=== PATIENT | female | born 1975 | race Caucasian/White ===

== ENCOUNTER 2016-07-19 15:50 | Emergency (ER) | payer MEDICARE, MEDICAID ==
[2014-04-04 06:27] VITALS: BMI 42.0
[~2016-07-19 15:50] MED LIST: BYSTOLIC5 MG PO; CELEXA10 MG PO; CYCLOBENZAPRINE10 MG PO; ESTRACE 0.5 MG0.5 MG PO; GLUCOPHAGE500 MG PO; HYDROCODON-ACE1 EAC6 PO; LISINOPRIL2.5 MG; ZESTORETIC 20/21 TAB PO
[2016-07-19 16:27] LABS: BASOPHILS 0.3 % (0.0-2.0); HEMATOCRIT 44.2 % (36.0-48.0); HEMOGLOBIN 15.1 g/dL (12-16); IMMATURE GRANULOCYTES 0.1 % (0-5); LYMPHOCYTES 35.6 % (15-50); MCH 30.7 pg (26.0-34.0); MCHC 34.2 g/dL (31.0-37.0); MCV 89.8 fL (80.0-100.0); MONOCYTES 4.8 % (2-11); NEUTROPHILS 58.2 % (40-80); PLATELET COUNT 255 10x3/uL (130-400); RBC 4.92 10x6/uL (4.00-5.40); RDW 12.1 % (11.5-14.5); WBC 9.1 10x3/uL (4.8-10.8)
[2016-07-19 16:41] LABS: ALBUMIN 4.2 g/dL (3.4-5.0); ALKALINE PHOSPHATASE 87 U/L (46-116); ALT (SGPT) 37 U/L (10-68); BILIRUBIN - TOTAL 0.37 mg/dL (0.2-1.3); CALC OSMOLALITY 283 mosm/kg (275-300); CALCIUM 9.3 mg/dL (8.5-10.1); CARBON DIOXIDE 24.4 mmol/L (21.0-32.0); CHLORIDE - SERUM 105 mmol/L (98-107); CREATININE - SERUM 0.7 mg/dL (0.6-1.3); POTASSIUM - SERUM 3.5 mmol/L (3.5-5.1); PROTEIN - SERUM 7.6 g/dL (6.4-8.2); SODIUM 142 mmol/L (136-145); UREA NITROGEN 13 mg/dL (7-18); eGFR NON AFRICAN AMERICAN > 90 mL/min (90-120)
[2016-07-19 16:43] LABS: GLUCOSE 118 mg/dL (74-106)
[2016-07-19 16:52] LABS: CREATINE KINASE 62 UL (21-215)
[2016-07-19 16:53] LABS: TROPONIN-I < 0.017 ng/mL (0.000-0.060)
== END 2016-07-19 18:00 | disposition home or self-care (01) ==
LOC: D.ER 15:50
PROVIDERS: Emergency Medicine
DX: K21.9 Gastro-esophageal reflux disease without esophagitis (principal); E11.9 Type 2 diabetes mellitus without complications; I10 Essential (primary) hypertension

== ENCOUNTER 2016-12-13 21:00 | Emergency (ER) | payer MEDICARE, MEDICAID ==
[2014-04-04 06:27] VITALS: BMI 42.0
[2016-12-13 21:44] LABS: BASOPHILS 0.5 % (0-2); EOSINOPHILS 5.9 % (0-7); HEMATOCRIT 43.2 % (36.0-48.0); HEMOGLOBIN 15.1 g/dL (12-16); IMMATURE GRANULOCYTES 0.1 % (0-5); LYMPHOCYTES 43.1 % (15-50); MCH 31.5 pg (26.0-34.0); MEAN PLATELET VOLUME 11.6 fL (7.4-10.4); MONOCYTES 6.5 % (2-11); NEUTROPHILS 43.9 % (40-80); PLATELET COUNT 246 10x3/uL (130-400); RDW 12.2 % (11.5-14.5); WBC 8.5 10x3/uL (4.8-10.8)
[2016-12-13 21:57] LABS: ALKALINE PHOSPHATASE 83 U/L (46-116); ALT (SGPT) 18 U/L (10-68); BILIRUBIN - TOTAL 0.22 mg/dL (0.2-1.3); CALCIUM 8.8 mg/dL (8.5-10.1); CARBON DIOXIDE 28.3 mmol/L (21.0-32.0); CHLORIDE - SERUM 100 mmol/L (98-107); CREATININE - SERUM 1.1 mg/dL (0.6-1.3); POTASSIUM - SERUM 3.4 mmol/L (3.5-5.1); PROTEIN - SERUM 7.3 g/dL (6.4-8.2); SODIUM 135 mmol/L (136-145); UREA NITROGEN 11 mg/dL (7-18); eGFR NON AFRICAN AMERICAN 58 mL/min (90-120)
[2016-12-13 22:08] LABS: CKMB 0.2 U/L (0.0-3.6); CREATINE KINASE 64 UL (21-215)
[2016-12-13 22:14] LABS: CALC OSMOLALITY 276 mosm/kg (275-300); GLUCOSE 242 mg/dL (74-106); TROPONIN-I < 0.017 ng/mL (0.000-0.060)
== END 2016-12-13 23:56 | disposition home or self-care (01) ==
LOC: D.ER 21:00
PROVIDERS: Emergency Medicine
DX: R07.89 Other chest pain (principal); D17.9 Benign lipomatous neoplasm, unspecified; L03.818 Cellulitis of other sites; E11.9 Type 2 diabetes mellitus without complications; K21.9 Gastro-esophageal reflux disease without esophagitis; I10 Essential (primary) hypertension

== ENCOUNTER 2017-01-29 09:29 | Emergency (ER) | payer MEDICARE, MEDICAID ==
[2014-04-04 06:27] VITALS: BMI 42.0
[2017-01-29 10:08] LABS: BASOPHILS 0.4 % (0-2); EOSINOPHILS 3.8 % (0-7); HEMATOCRIT 46.1 % (36.0-48.0); HEMOGLOBIN 16.2 g/dL (12-16); IMMATURE GRANULOCYTES 0.1 % (0-5); LYMPHOCYTES 32.9 % (15-50); MCH 31.6 pg (26.0-34.0); MCHC 35.1 g/dL (31.0-37.0); MCV 89.9 fL (80.0-100.0); MEAN PLATELET VOLUME 11.5 fL (7.4-10.4); MONOCYTES 6.4 % (2-11); NEUTROPHILS 56.4 % (40-80); PLATELET COUNT 221 10x3/uL (130-400); RBC 5.13 10x6/uL (4.00-5.40); RDW 12.1 % (11.5-14.5); WBC 6.9 10x3/uL (4.8-10.8)
[2017-01-29 10:36] LABS: BILIRUBIN - TOTAL 0.44 mg/dL (0.2-1.3); CALCIUM 9.6 mg/dL (8.5-10.1); CARBON DIOXIDE 23.1 mmol/L (21.0-32.0); CREATININE - SERUM 0.9 mg/dL (0.6-1.3); POTASSIUM - SERUM 4.1 mmol/L (3.5-5.1); PROTEIN - SERUM 7.7 g/dL (6.4-8.2)
== END 2017-01-29 11:17 | disposition home or self-care (01) ==
LOC: D.ER 09:29
PROVIDERS: Emergency Medicine
DX: L50.3 Dermatographic urticaria (principal); L01.00 Impetigo, unspecified; B35.3 Tinea pedis; B35.2 Tinea manuum; E11.9 Type 2 diabetes mellitus without complications; K21.9 Gastro-esophageal reflux disease without esophagitis; I10 Essential (primary) hypertension; F17.200 Nicotine dependence, unspecified, uncomplicated

== ENCOUNTER 2017-03-04 17:43 | Emergency (ER) | payer MEDICARE, MEDICAID ==
[2014-04-04 06:27] VITALS: BMI 42.0
== END 2017-03-04 18:50 | disposition home or self-care (01) ==
LOC: D.ER 17:43
DX: L01.00 Impetigo, unspecified (principal); E11.9 Type 2 diabetes mellitus without complications; K21.9 Gastro-esophageal reflux disease without esophagitis; I10 Essential (primary) hypertension

== ENCOUNTER 2017-04-28 22:25 | Emergency (ER) | payer MEDICARE, MEDICAID ==
[2014-04-04 06:27] VITALS: BMI 42.0
[2017-04-28 23:21] LABS: BASOPHILS 0.1 % (0-2); EOSINOPHILS 0.1 % (0-7); HEMOGLOBIN 17.3 g/dL (12-16); IMMATURE GRANULOCYTES 0.3 % (0-5); LYMPHOCYTES 13.8 % (15-50); MCH 31.7 pg (26.0-34.0); MCHC 35.3 g/dL (31.0-37.0); MCV 89.7 fL (80.0-100.0); MEAN PLATELET VOLUME 11.8 fL (7.4-10.4); NEUTROPHILS 79.7 % (40-80); PLATELET COUNT 251 10x3/uL (130-400); RBC 5.46 10x6/uL (4.00-5.40); RDW 12.5 % (11.5-14.5); WBC 9.6 10x3/uL (4.8-10.8)
[2017-04-28 23:39] LABS: KETONE - SERUM SMALL mg/dL (NEGATIVE)
[2017-04-28 23:46] LABS: ALBUMIN 3.5 g/dL (3.4-5.0); ALKALINE PHOSPHATASE 98 U/L (46-116); ALT (SGPT) 25 U/L (10-68); CALCIUM 9.6 mg/dL (8.5-10.1); CARBON DIOXIDE 23.3 mmol/L (21.0-32.0); CHLORIDE - SERUM 97 mmol/L (98-107); CKMB 0.2 U/L (0.0-3.6); CREATINE KINASE 35 UL (21-215); CREATININE - SERUM 1.3 mg/dL (0.6-1.3); POTASSIUM - SERUM 4.7 mmol/L (3.5-5.1); PROTEIN - SERUM 6.6 g/dL (6.4-8.2); SODIUM 132 mmol/L (136-145); TROPONIN-I < 0.017 ng/mL (0.000-0.060); UREA NITROGEN 17 mg/dL (7-18); eGFR NON AFRICAN AMERICAN 48 mL/min (90-120)
[2017-04-28 23:48] LABS: CALC OSMOLALITY 291 mosm/kg (275-300); GLUCOSE 549 mg/dL (74-106)
[2017-04-29 00:09] LABS: APPEARANCE CLEAR (CLEAR); BILIRUBIN NEGATIVE (NEGATIVE); COLOR STRAW (YELLOW); GLUCOSE 1000 mg/dL (NEGATIVE); KETONE SMALL mg/dL (NEGATIVE); NITRITE NEGATIVE (NEGATIVE); PROTEIN NEGATIVE (NEGATIVE); SPECIFIC GRAVITY 1.015 (1.005-1.020); UROBILINOGEN NORMAL (NORMAL)
[2017-04-29 00:10] LABS: BACTERIA NONE SEEN /hpf (NONE SEEN); EPITHELIAL CELLS 0-5 /hpf (0-5); RED CELLS - URINE 0-5 /hpf (0-5); WHITE CELLS - URINE NSEEN /hpf (0-5)
[2017-04-30] MEDS ORDERED: HYDROCODON-ACE1 EAC7 PO (03:41)
[2017-04-30] MEDS ORDERED: VALIUM10 MG PO (04:03)
[2017-04-30] MEDS ORDERED: MOBIC7.5 MG PO (04:05)
[2017-04-30] MEDS ORDERED: LANTUS INSULIN10 ML SC ×2 (04:06→13:40)
[2017-04-30] MEDS ORDERED: NOVOLOG100 U/M1 SC (13:41)
== END 2017-04-29 01:15 | disposition home or self-care (01) ==
LOC: D.ER 22:25
PROVIDERS: Family Medicine; Physician Assistant Medical
DX: E11.65 Type 2 diabetes mellitus with hyperglycemia (principal); K21.9 Gastro-esophageal reflux disease without esophagitis; I10 Essential (primary) hypertension; R00.0 Tachycardia, unspecified

== ENCOUNTER 2017-04-29 20:41 | Observation (INO) | payer MEDICARE, MEDICAID ==
[~2017-04-29] VITALS: Ht 167.6 cm; Wt 102.7 kg
[2017-04-29 21:49] LABS: BASOPHILS 0.1 % (0-2); EOSINOPHILS 0.2 % (0-7); HEMATOCRIT 43.2 % (36.0-48.0); HEMOGLOBIN 15.1 g/dL (12-16); IMMATURE GRANULOCYTES 0.3 % (0-5); LYMPHOCYTES 22.1 % (15-50); MCH 31.4 pg (26.0-34.0); MCV 89.8 fL (80.0-100.0); MEAN PLATELET VOLUME 11.2 fL (7.4-10.4); MONOCYTES 1.3 % (2-11); PLATELET COUNT 204 10x3/uL (130-400); RBC 4.81 10x6/uL (4.00-5.40); RDW 12.5 % (11.5-14.5); WBC 9.2 10x3/uL (4.8-10.8)
[2017-04-29 21:55] LABS: KETONE - SERUM NEGATIVE (NEGATIVE)
[2017-04-29 22:06] LABS: ALBUMIN 3.4 g/dL (3.4-5.0); ALKALINE PHOSPHATASE 74 U/L (46-116); ALT (SGPT) 22 U/L (10-68); BILIRUBIN - TOTAL 0.19 mg/dL (0.2-1.3); CALC OSMOLALITY 292 mosm/kg (275-300); CALCIUM 9.2 mg/dL (8.5-10.1); CARBON DIOXIDE 24.8 mmol/L (21.0-32.0); CHLORIDE - SERUM 100 mmol/L (98-107); CREATININE - SERUM 1.3 mg/dL (0.6-1.3); POTASSIUM - SERUM 3.7 mmol/L (3.5-5.1); PROTEIN - SERUM 6.2 g/dL (6.4-8.2); SODIUM 136 mmol/L (136-145); UREA NITROGEN 22 mg/dL (7-18); eGFR NON AFRICAN AMERICAN 48 mL/min (90-120)
[2017-04-29 22:07] LABS: GLUCOSE 427 mg/dL (74-106)
[2017-04-29 22:16] LABS: INR 0.88 (0.85-1.17); PROTIME 11.6 SECONDS (11.6-15.0)
[2017-04-29 22:18] LABS: D-DIMER-QUANTITATIVE 0.29 ug/mLFEU (0.20-0.54)
[2017-04-29 22:30] LABS: CKMB 0.2 U/L (0.0-3.6); CREATINE KINASE 38 UL (21-215); MAGNESIUM - SERUM 1.8 mg/dL (1.8-2.4); TROPONIN-I < 0.017 ng/mL (0.000-0.060)
[2017-04-30] MEDS ORDERED: HYDROCODON-ACE1 EAC7 PO (03:41)
[2017-04-30 03:44] VITALS: BP 109/70; BMI 36.5
[2017-04-30] MEDS ORDERED: VALIUM10 MG PO (04:03)
[2017-04-30] MEDS ORDERED: MOBIC7.5 MG PO (04:05)
[2017-04-30] MEDS ORDERED: LANTUS INSULIN10 ML SC ×2 (04:06→13:40)
[2017-04-30 06:44] LABS: BASOPHILS 0.1 % (0-2); EOSINOPHILS 0.4 % (0-7); HEMATOCRIT 44.2 % (36.0-48.0); HEMOGLOBIN 14.9 g/dL (12-16); IMMATURE GRANULOCYTES 0.5 % (0-5); LYMPHOCYTES 31.7 % (15-50); MCH 30.5 pg (26.0-34.0); MCHC 33.7 g/dL (31.0-37.0); MCV 90.6 fL (80.0-100.0); MEAN PLATELET VOLUME 11.4 fL (7.4-10.4); NEUTROPHILS 61.3 % (40-80); RBC 4.88 10x6/uL (4.00-5.40); RDW 12.6 % (11.5-14.5); WBC 10.9 10x3/uL (4.8-10.8)
[2017-04-30 06:47] LABS: PLATELET COUNT 249 10x3/uL (130-400)
[2017-04-30 07:09] LABS: ALBUMIN 3.5 g/dL (3.4-5.0); ALKALINE PHOSPHATASE 74 U/L (46-116); ALT (SGPT) 19 U/L (10-68); BILIRUBIN - TOTAL 0.37 mg/dL (0.2-1.3); CALC OSMOLALITY 287 mosm/kg (275-300); CALCIUM 9.3 mg/dL (8.5-10.1); CARBON DIOXIDE 28.7 mmol/L (21.0-32.0); CHLORIDE - SERUM 104 mmol/L (98-107); CREATININE - SERUM 0.8 mg/dL (0.6-1.3); GLUCOSE 216 mg/dL (74-106); POTASSIUM - SERUM 4.4 mmol/L (3.5-5.1); PROTEIN - SERUM 6.4 g/dL (6.4-8.2); SODIUM 139 mmol/L (136-145); UREA NITROGEN 21 mg/dL (7-18); eGFR NON AFRICAN AMERICAN 84 mL/min (90-120)
[2017-04-30 08:59] VITALS: BP 110/77
[2017-04-30 12:30] VITALS: BP 116/73
[2017-04-30 13:38] VITALS: Ht 167.6 cm; Wt 102.7 kg
[2017-04-30] MEDS ORDERED: NOVOLOG100 U/M1 SC (13:41)
== END 2017-04-30 14:45 | disposition home or self-care (01) ==
LOC: D.ER 20:41 → OBSVTIME 04-30 02:10 → D.MS 04-30 02:10
PROVIDERS: Family Medicine
DX: E11.65 Type 2 diabetes mellitus with hyperglycemia (principal); I10 Essential (primary) hypertension; K21.9 Gastro-esophageal reflux disease without esophagitis; F41.8 Other specified anxiety disorders

== ENCOUNTER 2017-05-24 11:51 | Emergency (ER) | payer MEDICARE, MEDICAID ==
[2017-04-30 13:38] VITALS: BMI 36.5
[~2017-05-24 11:51] MED LIST changes: +HYDROCODON-ACE1 EAC7 PO; +LANTUS INSULIN10 ML SC; +MOBIC7.5 MG PO; +NOVOLOG100 U/M1 SC; +VALIUM10 MG PO
[2017-05-24 12:46] LABS: BASOPHILS 0.2 % (0-2); EOSINOPHILS 0.7 % (0-7); HEMATOCRIT 42.8 % (36.0-48.0); HEMOGLOBIN 14.2 g/dL (12-16); IMMATURE GRANULOCYTES 0.3 % (0-5); MCH 31.1 pg (26.0-34.0); MCHC 33.2 g/dL (31.0-37.0); MCV 93.9 fL (80.0-100.0); MEAN PLATELET VOLUME 10.5 fL (7.4-10.4); MONOCYTES 6.2 % (2-11); NEUTROPHILS 57.6 % (40-80); PLATELET COUNT 227 10x3/uL (130-400); RBC 4.56 10x6/uL (4.00-5.40); RDW 12.7 % (11.5-14.5)
[2017-05-24 13:09] LABS: ALBUMIN 3.6 g/dL (3.4-5.0); ALKALINE PHOSPHATASE 79 U/L (46-116); ALT (SGPT) 22 U/L (10-68); BILIRUBIN - TOTAL 0.42 mg/dL (0.2-1.3); CALCIUM 8.9 mg/dL (8.5-10.1); CARBON DIOXIDE 28.3 mmol/L (21.0-32.0); CHLORIDE - SERUM 108 mmol/L (98-107); CREATININE - SERUM 0.8 mg/dL (0.6-1.3); POTASSIUM - SERUM 4.4 mmol/L (3.5-5.1); PROTEIN - SERUM 6.7 g/dL (6.4-8.2); SODIUM 144 mmol/L (136-145); UREA NITROGEN 14 mg/dL (7-18); eGFR NON AFRICAN AMERICAN 84 mL/min (90-120)
[2017-05-24 13:11] LABS: CHOL - HDL RATIO 4.9 ratio (2.3-4.1); CHOLESTEROL, TOTAL 221 mg/dL (0-200); CKMB 0.4 U/L (0.0-3.6); CREATINE KINASE 29 UL (21-215); HDL CHOLESTEROL 45 mg/dL (32-96); LDL CHOLESTEROL 155 mg/dL (0-100); LDL-HDL RATIO 3.4 ratio (1.5-3.5); MAGNESIUM - SERUM 2.2 mg/dL (1.8-2.4); TRIGLYCERIDE 106 mg/dL (30-200)
[2017-05-24 13:18] LABS: CALC OSMOLALITY 287 mosm/kg (275-300); GLUCOSE 102 mg/dL (74-106); TROPONIN-I < 0.017 ng/mL (0.000-0.060)
== END 2017-05-24 16:16 | disposition home or self-care (01) ==
LOC: D.ER 11:51
PROVIDERS: Family Medicine
DX: R07.89 Other chest pain (principal); F17.200 Nicotine dependence, unspecified, uncomplicated

== ENCOUNTER → 2017-09-09 17:21 | Outpatient (CLI) | payer MEDICARE, MEDICAID ==
[2017-04-30 13:38] VITALS: BMI 36.5
== END | disposition home or self-care (01) ==
LOC: D.MAMMO 11:00
DX: Z12.31 Encounter for screening mammogram for malignant neoplasm of breast (principal)

== ENCOUNTER 2017-09-15 13:27 | Emergency (ER) | payer MEDICARE, MEDICAID ==
[2017-04-30 13:38] VITALS: BMI 36.5
== END 2017-09-15 14:05 | disposition home or self-care (01) ==
LOC: D.ER 13:27
DX: F41.9 Anxiety disorder, unspecified (principal)

== ENCOUNTER 2018-01-25 08:35 | Emergency (ER) | payer MEDICARE, MEDICAID ==
[~2018-01-25] VITALS: Ht 167.6 cm; Wt 97.3 kg
[2018-01-25 08:41] VITALS: Ht 167.6 cm; Wt 97.3 kg
[2018-01-25] MEDS ORDERED: DICLOFENAC SODI50 MG PO (08:43)
[2018-01-25 09:07] LABS: BASOPHILS 0.3 % (0-2); EOSINOPHILS 0.9 % (0-7); HEMATOCRIT 43.2 % (36.0-48.0); HEMOGLOBIN 15.1 g/dL (12-16); IMMATURE GRANULOCYTES 0.6 % (0-5); LYMPHOCYTES 37.1 % (15-50); MCH 31.4 pg (26.0-34.0); MCV 89.8 fL (80.0-100.0); MEAN PLATELET VOLUME 10.2 fL (7.4-10.4); MONOCYTES 7.1 % (2-11); PLATELET COUNT 248 10x3/uL (130-400); RBC 4.81 10x6/uL (4.00-5.40); RDW 12.7 % (11.5-14.5)
[2018-01-25 09:31] LABS: ALBUMIN 4.3 g/dL (3.4-5.0); ALKALINE PHOSPHATASE 94 U/L (46-116); ALT (SGPT) 47 U/L (10-68); BILIRUBIN - TOTAL 0.61 mg/dL (0.2-1.3); CALC OSMOLALITY 281 mosm/kg (275-300); CALCIUM 9.7 mg/dL (8.5-10.1); CARBON DIOXIDE 24.6 mmol/L (21.0-32.0); CHLORIDE - SERUM 102 mmol/L (98-107); CREATININE - SERUM 0.8 mg/dL (0.6-1.3); POTASSIUM - SERUM 4.1 mmol/L (3.5-5.1); PROTEIN - SERUM 7.5 g/dL (6.4-8.2); SODIUM 138 mmol/L (136-145); UREA NITROGEN 15 mg/dL (7-18); eGFR NON AFRICAN AMERICAN 84 mL/min (90-120)
[2018-01-25 09:32] LABS: GLUCOSE 180 mg/dL (74-106)
[2018-01-25] MEDS ORDERED: ACETAMINOPHEN500 M1 PO (10:10)
[2018-01-25] MEDS ORDERED: IBUPROFEN800 MG PO (10:10)
[2018-01-25] MEDS ORDERED: CYCLOBENZAPRINE10 MG PO (10:10)
[2018-01-27 08:27] VITALS: BP 122/87
== END 2018-01-25 10:02 | disposition home or self-care (01) ==
LOC: D.ER 08:35
PROVIDERS: Family Medicine
DX: R22.9 Localized swelling, mass and lump, unspecified (principal); R51 Headache; R53.81 Other malaise; E11.9 Type 2 diabetes mellitus without complications; I10 Essential (primary) hypertension; F17.200 Nicotine dependence, unspecified, uncomplicated

== ENCOUNTER 2018-04-29 22:56 | Emergency (ER) | payer MEDICARE, MEDICAID ==
[~2018-04-29] VITALS: Ht 167.6 cm; Wt 95.5 kg
[~2018-04-29 22:56] MED LIST changes: +ACETAMINOPHEN500 M1 PO; +DICLOFENAC SODI50 MG PO; +IBUPROFEN800 MG PO
[2018-04-29 23:08] VITALS: Ht 167.6 cm; Wt 95.5 kg
[2018-04-29 23:26] LABS: BASOPHILS 0.6 % (0-2); EOSINOPHILS 2.6 % (0-7); HEMATOCRIT 40.6 % (36.0-48.0); IMMATURE GRANULOCYTES 0.3 % (0-5); LYMPHOCYTES 37.9 % (15-50); MCH 32.6 pg (26.0-34.0); MCHC 34.5 g/dL (31.0-37.0); MCV 94.4 fL (80.0-100.0); MONOCYTES 5.2 % (2-11); NEUTROPHILS 53.4 % (40-80); PLATELET COUNT 270 10x3/uL (130-400); RDW 12.1 % (11.5-14.5); WBC 10.3 10x3/uL (4.8-10.8)
[2018-04-29 23:38] LABS: APTT 29.2 SECONDS (22.8-39.4); INR 0.95 (0.85-1.17); PROTIME 12.2 SECONDS (11.6-15.0)
[2018-04-29 23:42] LABS: ALBUMIN 3.4 g/dL (3.4-5.0); ALKALINE PHOSPHATASE 78 U/L (46-116); ALT (SGPT) 23 U/L (10-68); BILIRUBIN - TOTAL 0.14 mg/dL (0.2-1.3); CALC OSMOLALITY 285 mosm/kg (275-300); CALCIUM 8.8 mg/dL (8.5-10.1); CARBON DIOXIDE 29.7 mmol/L (21.0-32.0); CHLORIDE - SERUM 105 mmol/L (98-107); CREATININE - SERUM 0.8 mg/dL (0.6-1.3); GLUCOSE 187 mg/dL (74-106); POTASSIUM - SERUM 3.9 mmol/L (3.5-5.1); PROTEIN - SERUM 6.5 g/dL (6.4-8.2); SODIUM 142 mmol/L (136-145); UREA NITROGEN 8 mg/dL (7-18); eGFR NON AFRICAN AMERICAN 84 mL/min (90-120)
[2018-04-29 23:54] LABS: CKMB 0.5 U/L (0.0-3.6); CREATINE KINASE 46 UL (21-215); MAGNESIUM - SERUM 1.8 mg/dL (1.8-2.4); TROPONIN-I < 0.017 ng/mL (0.000-0.060)
[2018-04-30] MEDS ORDERED: NAPROSYN500 MG PO (01:22)
[2018-04-30 01:56] VITALS: BP 130/89
== END 2018-04-30 01:57 | disposition home or self-care (01) ==
LOC: D.ER 22:56
PROVIDERS: Family Medicine
DX: M94.0 Chondrocostal junction syndrome [Tietze] (principal); E11.9 Type 2 diabetes mellitus without complications; I10 Essential (primary) hypertension; F17.200 Nicotine dependence, unspecified, uncomplicated

== ENCOUNTER 2018-10-20 23:11 | Emergency (ER) | payer MEDICARE, MEDICAID ==
[~2018-10-20] VITALS: Ht 167.6 cm; Wt 99.8 kg
[~2018-10-20 23:11] MED LIST changes: +NAPROSYN500 MG PO
[2018-10-20 23:24] VITALS: Ht 167.6 cm; Wt 99.8 kg
[2018-10-21 01:18] VITALS: BP 145/90
== END 2018-10-21 01:18 | disposition home or self-care (01) ==
LOC: D.ER 23:11
DX: M25.511 Pain in right shoulder (principal)

== ENCOUNTER 2018-10-28 17:14 | Emergency (ER) | payer MEDICARE, MEDICAID ==
[2018-10-28 17:27] VITALS: BMI 35.7
[2018-10-28 17:51] LABS: BASOPHILS 0.4 % (0-2); EOSINOPHILS 3.8 % (0-7); HEMATOCRIT 42.7 % (36.0-48.0); HEMOGLOBIN 14.9 g/dL (12-16); IMMATURE GRANULOCYTES 0.4 % (0-5); LYMPHOCYTES 34.1 % (15-50); MCH 31.5 pg (26.0-34.0); MCHC 34.9 g/dL (31.0-37.0); MCV 90.3 fL (80.0-100.0); MEAN PLATELET VOLUME 11.7 fL (7.4-10.4); MONOCYTES 5.6 % (2-11); NEUTROPHILS 55.7 % (40-80); RBC 4.73 10x6/uL (4.00-5.40); WBC 8.1 10x3/uL (4.8-10.8)
[2018-10-28 17:52] LABS: PLATELET COUNT 197 10x3/uL (130-400)
[2018-10-28 18:00] LABS: INR 0.95 (0.85-1.17); PROTIME 12.2 SECONDS (11.6-15.0)
[2018-10-28 18:01] LABS: APTT 29.1 SECONDS (22.8-39.4)
[2018-10-28 18:10] LABS: ALKALINE PHOSPHATASE 105 U/L (46-116); ALT (SGPT) 185 U/L (10-68); BILIRUBIN - TOTAL 0.23 mg/dL (0.2-1.3); CALC OSMOLALITY 281 mosm/kg (275-300); CARBON DIOXIDE 27.6 mmol/L (21.0-32.0); CHLORIDE - SERUM 99 mmol/L (98-107); CREATININE - SERUM 0.9 mg/dL (0.6-1.3); POTASSIUM - SERUM 4.1 mmol/L (3.5-5.1); PROTEIN - SERUM 7.4 g/dL (6.4-8.2); SODIUM 135 mmol/L (136-145); UREA NITROGEN 13 mg/dL (7-18); eGFR NON AFRICAN AMERICAN 73 mL/min (90-120)
[2018-10-28 18:11] LABS: GLUCOSE 323 mg/dL (74-106)
[2018-10-28 18:24] LABS: CKMB 0.4 U/L (0.0-3.6); CREATINE KINASE 68 UL (21-215); MAGNESIUM - SERUM 1.9 mg/dL (1.8-2.4)
[2018-10-28 18:47] LABS: TROPONIN-I < 0.017 ng/mL (0.000-0.060)
[2018-10-28 20:14] VITALS: BP 124/67
[2018-10-28 20:44] LABS: APPEARANCE CLEAR (CLEAR); BILIRUBIN NEGATIVE (NEGATIVE); COLOR YELLOW (YELLOW); GLUCOSE 1000 mg/dL (NEGATIVE); KETONE NEGATIVE (NEGATIVE); NITRITE NEGATIVE (NEGATIVE); PROTEIN NEGATIVE (NEGATIVE); SPECIFIC GRAVITY 1.025 (1.005-1.020); UROBILINOGEN NORMAL (NORMAL)
[2018-10-28 20:45] LABS: BACTERIA MODERATE /hpf (NONE SEEN); EPITHELIAL CELLS 0-5 /hpf (0-5); RED CELLS - URINE 0-5 /hpf (0-5); WHITE CELLS - URINE 0-5 /hpf (0-5)
== END 2018-10-28 20:14 | disposition home or self-care (01) ==
LOC: D.ER 17:14
PROVIDERS: Emergency Medicine
DX: R07.9 Chest pain, unspecified (principal); R00.2 Palpitations; Z95.1 Presence of aortocoronary bypass graft

== ENCOUNTER → 2018-11-01 13:53 | Outpatient (CLI) | payer MEDICARE, MEDICAID ==
[2018-10-28 17:27] VITALS: BMI 35.7
== END | disposition home or self-care (01) ==
LOC: D.MRI 13:53
DX: M51.36 Other intervertebral disc degeneration, lumbar region (principal)

== ENCOUNTER 2018-11-13 17:30 | Inpatient (IN) | payer MEDICARE, MEDICAID ==
[~2018-11-13] VITALS: Ht 167.6 cm; Wt 98.9 kg
[2018-11-13 18:17] LABS: APPEARANCE CLEAR (CLEAR); BILIRUBIN NEGATIVE (NEGATIVE); COLOR STRAW (YELLOW); GLUCOSE 1000 mg/dL (NEGATIVE); KETONE NEGATIVE (NEGATIVE); NITRITE NEGATIVE (NEGATIVE); PROTEIN NEGATIVE (NEGATIVE); UROBILINOGEN NORMAL (NORMAL)
[2018-11-13 18:17] LABS: BASOPHILS 0.6 % (0-2); EOSINOPHILS 3.4 % (0-7); HEMATOCRIT 44.9 % (36.0-48.0); HEMOGLOBIN 15.7 g/dL (12-16); IMMATURE GRANULOCYTES 0.4 % (0-5); LYMPHOCYTES 32.1 % (15-50); MCH 31.4 pg (26.0-34.0); MCV 89.8 fL (80.0-100.0); MEAN PLATELET VOLUME 11.5 fL (7.4-10.4); MONOCYTES 4.8 % (2-11); NEUTROPHILS 58.7 % (40-80); PLATELET COUNT 197 10x3/uL (130-400); WBC 7.8 10x3/uL (4.8-10.8)
[2018-11-13 18:20] LABS: KETONE - SERUM NEGATIVE (NEGATIVE)
[2018-11-13 18:26] LABS: ALBUMIN 3.7 g/dL (3.4-5.0); ALKALINE PHOSPHATASE 111 U/L (46-116); ALT (SGPT) 178 U/L (10-68); BILIRUBIN - TOTAL 0.34 mg/dL (0.2-1.3); CALC OSMOLALITY 289 mosm/kg (275-300); CARBON DIOXIDE 26.9 mmol/L (21.0-32.0); CHLORIDE - SERUM 99 mmol/L (98-107); CREATININE - SERUM 1.1 mg/dL (0.6-1.3); MAGNESIUM - SERUM 1.9 mg/dL (1.8-2.4); POTASSIUM - SERUM 3.8 mmol/L (3.5-5.1); PROTEIN - SERUM 7.3 g/dL (6.4-8.2); SODIUM 135 mmol/L (136-145); UREA NITROGEN 10 mg/dL (7-18); eGFR NON AFRICAN AMERICAN 58 mL/min (90-120)
[2018-11-13 18:34] LABS: GLUCOSE 478 mg/dL (74-106)
--- NOTE | 2018-11-13 20:07 | NUR ---
FSBS 339
--- NOTE | 2018-11-13 20:08 | NUR ---
PT LAYING IN BED. RESPIRATIONS ARE EVEN AND UNLABORED. NO DISTRESS NOTED. COLOR WNL FOR RACE. IV PATENT AND INFUSING WITHOUT S/S OF INFILTRATION NOTED. WILL CONTINUE TO MONITOR PATIENT. VSS.
[2018-11-13 21:00] VITALS: BP 123/75
--- NOTE | 2018-11-13 21:00 | NUR ---
DAVID CORTEZ AT BEDSIDE.
[2018-11-13] MEDS ORDERED: XANAX1 MG PO (23:35)
[2018-11-13] MEDS ORDERED: NEURONTIN 300300 MG PO (23:35)
[2018-11-13] MEDS ORDERED: NOVOLOG100 UNIT/1 SC (23:39)
[2018-11-13 23:51] VITALS: BP 138/86; BMI 35.3
--- NOTE | 2018-11-14 00:19 | NUR ---
RECIEVED REPORT FROM CHELSEY IN ER. BROUGHT TO FLOOR IN W/C. TRANSFERED SELF TO BED. UPSET AND CRYING OVER A PHONE CALL TO SIGN. OTHER. WAITED AND LET HER CALM DOWN BEFORE ASSESSMENT. FINALLY CALM AND SIGN OTHER IN ROOM. PT IN MUCH BETTER MOOD EATING MCDONALDS. WENT OUTSIDE TO SMOKE. REFUSES NICTINE PATCH WHILE IN HOSPITAL. ALERT AND ORIENTED X4. UP AD KD. SKIN WARM AND INTACT. IV X2 TO RIGHT FA AND RIGHT HAND. NS INFUSING AT 125CC/HR PER ORDERS. ASSESSMENT COMPLETED AND DENIES ANY OTHER NEEDS.
[2018-11-14 04:00] VITALS: BP 117/80
[2018-11-14 12:22] VITALS: BP 138/75
[2018-11-14 12:58] LABS: ANION GAP 12.7 mmol/L (8-16); CALCIUM 9.1 mg/dL (8.5-10.1); CARBON DIOXIDE 25.2 mmol/L (21.0-32.0); CREATININE - SERUM 0.9 mg/dL (0.6-1.3); POTASSIUM - SERUM 3.9 mmol/L (3.5-5.1)
[2018-11-14 13:21] VITALS: Ht 167.6 cm; Wt 98.9 kg
--- NOTE | 2018-11-14 14:12 | NUR ---
I have reviewed this patient and I concur with the Shift Assessment completed by the Licensed Practical Nurse today this shift.
--- NOTE | 2018-11-14 14:35 | MORECARE ---
CASE MANAGEMENT DISCHARGE SUMMARY PATIENT: LIVIA PERRY UNIT: [id number] ADM DATE: 11/13/18 AGE: 43 : 77 SEX: F ROOM/BED: D.7738 AUTHOR: SHIRAZ EDWARDS PHYSICIAN: REFERRING PHYSICIAN: SUNG JUNIOR MD DATE OF SERVICE: 11/14/18 Discharge Plan Patient Name: LIVIA PERRY Facility: [facility]:[place] : 1975 Planned Disposition: Home Anticipated Discharge Date: 11/14/18 Discharge Date: Expected LOS: 1 Initial Reviewer: [email or web address] Initial Review Date: 11/13/2018 Generated: 11/14/18 3:35 pm DCPIA - Discharge Planning Initial Assessment Updated by [email or web address]: Joseph Mcclure on 11/14/18 2:30 pm * Is the patient Alert and Oriented? Yes * How many steps to enter\exit or inside your home? NONE * PCP DR. ÁLVAREZ * Pharmacy [facility] * Preadmission Environment Home Alone * ADLs Independent * Equipment Glucometer * Other Equipment NO MEDICAL EQUIPMENT PROVIDER PREFERENCE * List name and contact numbers for known caregivers / representatives who currently or will assist patient after discharge: MIGUELITO PERRY, EX SPOUSE, * Verbal permission to speak to the caregivers and representatives has been obtained from the patient. Yes * Community resources currently utilized None * Please name any agencies selected above. NONE * Additional services required to return to the preadmission environment? No * Can the patient safely return to the preadmission environment? Yes * Has this patient been hospitalized within the prior 30 days at any hospital? No Patient Name: LIVIA PERRY Page [id number] at 1435 All edits/amendments must be made on the electronic document DICTATION DATE: 11/14/18 1435 DEICER INSPECTOR PNEUMATIC: AURY 11/14/18 1435 RPT#: [id number] DC DATE: STATUS: ADM IN [facility] [address] [place] [address] END OF REPORT
--- NOTE | 2018-11-14 14:43 | MORECARE ---
CASE MANAGEMENT DISCHARGE SUMMARY PATIENT: LIVIA PERRY UNIT: [id number] ADM DATE: 11/13/18 AGE: 43 : 77 SEX: F ROOM/BED: D.7778 AUTHOR: GRACE,DOC PHYSICIAN: REFERRING PHYSICIAN: SUNG JUNIOR MD DATE OF SERVICE: 11/14/18 Discharge Plan Patient Name: LIVIA PERRY Facility: [facility]:[place] : 1975 Planned Disposition: Home Anticipated Discharge Date: 11/14/18 Discharge Date: Expected LOS: 1 Initial Reviewer: [email or web address] Initial Review Date: 11/13/2018 Generated: 11/14/18 3:43 pm DCP- Discharge Planning Updated by [email or web address]: Joseph Mcclure on 11/14/18 1:[address] Patient Name: LIVIA PERRY Admission Status: ER Accout number: [id number] Admission Date: 11-13-2018 : 1975 Admission Diagnosis: Attending: SUNG JUNIOR Current LOS: 1 Anticipated DC Date: 11-14-2018 Planned Disposition: Home Primary Insurance: [employer] ADV Discharge Planning Comments: CM RECEIVED REQUEST TO MEET WITH PT IN ROOM. CM MET WITH PT AND EX SPOUSE IN ROOM TO DISCUSS DISCHARGE PLANNING AND NEEDS.LIVIA PERRY provided verbal consent to discuss current and ongoing needs with/in the presence of: MIGUELITO PERRY. PT REPORTS LIVING AT HOME INDEPENDENTLY WITH HER MOTHER IN LAW AND FAMILY. PT HAS GLUCOMETER WITH NO MEDICAL EQUIPMENT PROVIDER PREFERENCE. PT REPORTS HAVING SUPPLIER FOR GLUCOMETER TESTING STRIPS AND INSULIN. PT HAS NO OUTSIDE SERVICES ASSISTING IN THE HOME. CM DISCUSSED AVAILABILITY OF HOME HEALTH, REHAB SERVICES AND MEDICAL EQUIPMENT. PT DENIES DISCHARGE NEEDS, REPORTS HER EX SPOUSE WILL PICK HER UP FOR DISCHARGE HOME NOW. PT STATES SHE CAN LAY IN THE BED AT HOME, HAS ALL NEEDED SUPPLIES TO MONITOR HER BLOOD SUGAR AND ADMINISTER INSULIN AT HOME. PT STATES SHE IS BORED AND WANTS DISCHARGED HOME NOW. PT STATES SHE MAY SIGN OUT AGAINST MEDICAL ADVICE. CM EXPLAINED THAT PT'S INSURANCE MAY DECLINE TO PAY FOR THE HOSPITAL TREATMENT IF PT SIGNS OUT "AMA". CM OFFERED TO PAGE THE NURSE PRACTITIONER AND HAVE THEM MEET WITH HER. PT ASKED THIS BE DONE. CM PAGED AND SPOKE TO JOANN FALCON WHO MET WITH PT IN ROOM TO DISCUSS MEDICAL TREATMENT. PT PLANS TO DISCHARGE HOME WITH FAMILY, EX SPOUSE TO TRANSPORT HOME. PT DENIES DISCHARGE NEEDS. CM TO FOLLOW AND ASSIST IF NEEDED. Tractor Trailer Operator: Joseph Mcclure DCPIA - Discharge Planning Initial Assessment Updated by [email or web address]: Joseph Mcclure on 11/14/18 2:30 pm * Is the patient Alert and Oriented? Yes * How many steps to enter\\exit or inside your home? NONE * PCP DR. ÁLVAREZ * Pharmacy [facility] * Preadmission Environment Home Alone * ADLs Independent * Equipment Glucometer * Other Equipment NO MEDICAL EQUIPMENT PROVIDER PREFERENCE * List name and contact numbers for known caregivers / representatives who currently or will assist patient after discharge: MIGUELITO PERRY, EX SPOUSE, * Verbal permission to speak to the caregivers and representatives has been obtained from the patient. Yes * Community resources currently utilized None * Please name any agencies selected above. NONE * Additional services required to return to the preadmission environment? No * Can the patient safely return to the preadmission environment? Yes * Has this patient been hospitalized within the prior 30 days at any hospital? No Last DP export: 11/14/18 1:35 p Patient Name: LIVIA PERRY Page [id number] at 1443 All edits/amendments must be made on the electronic document DICTATION DATE: 11/14/181442 MEDICAL CARE MANAGER: AURY 11/14/18 1443 RPT#: [id number] HI DATE: STATUS: ADM IN [facility] [address] [place] [address] END OF REPORT
[2018-11-14 16:44] VITALS: BP 131/77
[2018-11-14 20:00] VITALS: BP 128/71
--- NOTE | 2018-11-14 20:38 | NUR ---
RECIEVED LAYING IN BED WITH EYES OPEN AND TV ON. ALERT AND ORIENTED X4. FSBS CHECKED AND RESULTS 352. S/S INSULIN GIVEN AND LANTUS GIVEN. IV TO RIGHT FA SL PER PT REQUEST. GETS UP AND AMBULATES IN HALLWAYS AND GOES OUTSIDE TO SMOKE. RERFUSES NICOTINE PATCH. DENIES ANY NEEDS AT THIS TIME.
[2018-11-15] VITALS: BP 129/75
[2018-11-15 04:00] VITALS: BP 112/68
[2018-11-15 06:21] LABS: BASOPHILS 0.6 % (0-2); EOSINOPHILS 4.3 % (0-7); HEMATOCRIT 40.3 % (36.0-48.0); IMMATURE GRANULOCYTES 0.8 % (0-5); LYMPHOCYTES 42.8 % (15-50); MCHC 34.7 g/dL (31.0-37.0); MCV 89.4 fL (80.0-100.0); MEAN PLATELET VOLUME 11.5 fL (7.4-10.4); MONOCYTES 4.9 % (2-11); NEUTROPHILS 46.6 % (40-80); PLATELET COUNT 192 10x3/uL (130-400); RBC 4.51 10x6/uL (4.00-5.40); RDW 12.1 % (11.5-14.5); WBC 6.6 10x3/uL (4.8-10.8)
[2018-11-15 06:36] LABS: CALCIUM 8.6 mg/dL (8.5-10.1); CARBON DIOXIDE 27.9 mmol/L (21.0-32.0); CHLORIDE - SERUM 107 mmol/L (98-107); MAGNESIUM - SERUM 1.9 mg/dL (1.8-2.4); PHOSPHOROUS 4.1 mg/dL (2.5-4.9); POTASSIUM - SERUM 3.5 mmol/L (3.5-5.1); SODIUM 142 mmol/L (136-145); UREA NITROGEN 10 mg/dL (7-18)
[2018-11-15 06:47] LABS: CALC OSMOLALITY 284 mosm/kg (275-300); CREATININE - SERUM 0.6 mg/dL (0.6-1.3); GLUCOSE 158 mg/dL (74-106); eGFR NON AFRICAN AMERICAN > 90 mL/min (90-120)
[2018-11-15] MEDS ORDERED: LANTUS SOL100 UNIT/1 SC (07:27)
--- NOTE | 2018-11-15 07:41 | NUR ---
ASSESSMENT DONE. DENIES NEEDS.
--- NOTE | 2018-11-15 08:26 | MORECARE ---
CASE MANAGEMENT DISCHARGE SUMMARY PATIENT: LIVIA PERRY UNIT: [id number] ADM DATE: 11/14/18 AGE: 43 : 77 SEX: F ROOM/BED: D.5605 AUTHOR: GRACE,DOC PHYSICIAN: REFERRING PHYSICIAN: SUNG JUNIOR MD DATE OF SERVICE: 11/15/18 Discharge Plan Patient Name: LIVIA PERRY Facility: [facility]:[place] : 1975 Planned Disposition: Home Anticipated Discharge Date: 11/15/18 Discharge Date: Expected LOS: 1 Initial Reviewer: [email or web address] Initial Review Date: 11/13/2018 Generated: 11/15/18 9:26 am DCP- Discharge Planning Updated by [email or web address]: Joseph Mcclure on 11/14/18 1:[address] Patient Name: LIVIA PERRY Admission Status: ER Accout number: [id number] Admission Date: 11-13-2018 : 1975 Admission Diagnosis: Attending: SUNG JUNIOR Current LOS: 1 Anticipated DC Date: 11-14-2018 Planned Disposition: Home Primary Insurance: [employer] MEDICARE ADV Discharge Planning Comments: CM RECEIVED REQUEST TO MEET WITH PT IN ROOM. CM MET WITH PT AND EX SPOUSE IN ROOM TO DISCUSS DISCHARGE PLANNING AND NEEDS.LIVIA PERRY provided verbal consent to discuss current and ongoing needs with/in the presence of: MIGUELITO PERRY. PT REPORTS LIVING AT HOME INDEPENDENTLY WITH HER MOTHER IN LAW AND FAMILY. PT HAS GLUCOMETER WITH NO MEDICAL EQUIPMENT PROVIDER PREFERENCE. PT REPORTS HAVING SUPPLIER FOR GLUCOMETER TESTING STRIPS AND INSULIN. PT HAS NO OUTSIDE SERVICES ASSISTING IN THE HOME. CM DISCUSSED AVAILABILITY OF HOME HEALTH, REHAB SERVICES AND MEDICAL EQUIPMENT. PT DENIES DISCHARGE NEEDS, REPORTS HER EX SPOUSE WILL PICK HER UP FOR DISCHARGE HOME NOW. PT STATES SHE CAN LAY IN THE BED AT HOME, HAS ALL NEEDED SUPPLIES TO MONITOR HER BLOOD SUGAR AND ADMINISTER INSULIN AT HOME. PT STATES SHE IS BORED AND WANTS DISCHARGED HOME NOW. PT STATES SHE MAY SIGN OUT AGAINST MEDICAL ADVICE. CM EXPLAINED THAT PT'S INSURANCE MAY DECLINE TO PAY FOR THE HOSPITAL TREATMENT IF PT SIGNS OUT "AMA". CM OFFERED TO PAGE THE NURSE PRACTITIONER AND HAVE THEM MEET WITH HER. PT ASKED THIS BE DONE. CM PAGED AND SPOKE TO JOANN FALCON WHO MET WITH PT IN ROOM TO DISCUSS MEDICAL TREATMENT. PT PLANS TO DISCHARGE HOME WITH FAMILY, EX SPOUSE TO TRANSPORT HOME. PT DENIES DISCHARGE NEEDS. CM TO FOLLOW AND ASSIST IF NEEDED. Guide Rail Cleaner: Joseph Mcclure DCPIA - Discharge Planning Initial Assessment Updated by [id number]: Joseph Mcclure on 11/14/18 2:30 pm * Is the patient Alert and Oriented? Yes * How many steps to enter\\exit or inside your home? NONE * PCP DR. ÁLVAREZ * Pharmacy [facility] * Preadmission Environment Home Alone * ADLs Independent * Equipment Glucometer * Other Equipment NO MEDICAL EQUIPMENT PROVIDER PREFERENCE * List name and contact numbers for known caregivers / representatives who currently or will assist patient after discharge: MIGUELITO PERRY, EX SPOUSE, * Verbal permission to speak to the caregivers and representatives has been obtained from the patient. Yes * Community resources currently utilized None * Please name any agencies selected above. NONE * Additional services required to return to the preadmission environment? No * Can the patient safely return to the preadmission environment? Yes * Has this patient been hospitalized within the prior 30 days at any hospital? No Last DP export: 11/14/18 1:43 p Patient Name: LIVIA PERRY Page [phone] at 0826 All edits/amendments must be made on the electronic document DICTATION DATE: 11/15/18825 CMO & PRESIDENT: AURY 11/15/18825 RPT#: [id number] DC DATE: STATUS: ADM IN [facility] [address] [place] [address] END OF REPORT
--- NOTE | 2018-11-15 10:00 | NUR ---
DC GIVEN TO PT
--- NOTE | 2018-11-15 10:04 | NUR ---
I have reviewed this patient and I concur with the Shift Assessment completed by the Licensed Practical Nurse today this shift.
--- NOTE | 2018-11-15 10:11 | NUR ---
DC HOME PER PERSONAL CAR
== END 2018-11-15 10:12 | disposition home or self-care (01) | DRG 639 ==
LOC: D.ER 17:30 → OBSVTIME 21:14 → D.M2 21:14
PROVIDERS: Family Medicine; ADMIT Internal Medicine Nephrology; ATTEND Internal Medicine Nephrology
DX: E11.65 Type 2 diabetes mellitus with hyperglycemia (principal); E11.40 Type 2 diabetes mellitus with diabetic neuropathy, unspecified; I10 Essential (primary) hypertension

== ENCOUNTER → 2018-11-30 12:12 | Outpatient (CLI) | payer MEDICARE, MEDICAID ==
[2018-11-14 13:21] VITALS: BMI 35.2
[~2018-11-30 12:12] MED LIST changes: +LANTUS SOL100 UNIT/1 SC; +NEURONTIN 300300 MG PO; +NOVOLOG100 UNIT/1 SC; +XANAX1 MG PO
== END | disposition home or self-care (01) ==
LOC: D.MRI 12:12
PROVIDERS: ATTEND Orthopaedic Surgery
DX: M25.511 Pain in right shoulder (principal)

== ENCOUNTER → 2018-12-27 08:21 | Outpatient (CLI) | payer MEDICARE, MEDICAID ==
[2018-11-14 13:21] VITALS: BMI 35.2
== END | disposition home or self-care (01) ==
LOC: D.NM 08:21
PROVIDERS: ATTEND Clinical Nurse Specialist Family Health
DX: S22.31XA Fracture of one rib, right side, initial encounter for closed fracture (principal)

== ENCOUNTER 2020-09-27 18:38 | Emergency (ER) | payer MEDICARE, MEDICAID ==
[~2020-09-27] VITALS: Ht 167.6 cm; Wt 100.0 kg
[2020-09-27 18:48] VITALS: BP 164/105; Ht 167.6 cm; Wt 100.0 kg
[2020-09-27] MEDS ORDERED: HYDROCODON-ACE1 EA10 PO (18:49)
[2020-09-27] MEDS ORDERED: ARTHROTEC EC 71 EACH PO (20:08)
== END 2020-09-27 20:55 | disposition home or self-care (01) ==
LOC: D.ER 18:38
DX: S29.011A Strain of muscle and tendon of front wall of thorax, initial encounter (principal); E11.40 Type 2 diabetes mellitus with diabetic neuropathy, unspecified; Z79.4 Long term (current) use of insulin; X58.XXXA Exposure to other specified factors, initial encounter

== ENCOUNTER 2020-10-11 19:29 | Inpatient (IN) | payer MEDICARE, MEDICAID ==
[~2020-10-11] VITALS: Ht 167.6 cm; Wt 94.8 kg
[~2020-10-11 19:29] MED LIST changes: +ARTHROTEC EC 71 EACH PO; +HYDROCODON-ACE1 EA10 PO
[2020-10-11 20:19] LABS: BASOPHILS 1.2 % (0-2); EOSINOPHILS 3.1 % (0-7); HEMATOCRIT 42.5 % (36.0-48.0); HEMOGLOBIN 14.1 g/dL (12-16); LYMPHOCYTES 37.8 % (15-50); MCH 29.3 pg (26.0-34.0); MCHC 33.3 g/dL (31.0-37.0); MCV 88.2 fL (80.0-100.0); MEAN PLATELET VOLUME 9.6 fL (7.4-10.4); MONOCYTES 5.8 % (2-11); NEUTROPHILS 52.1 % (40-80); PLATELET COUNT 225 10x3/uL (130-400); RBC 4.82 10x6/uL (4.00-5.40); RDW 12.4 % (11.5-14.5); WBC 7.6 10x3/uL (4.8-10.8)
[2020-10-11 20:38] LABS: ALBUMIN 3.7 g/dL (3.4-5.0); ANION GAP 12.4 mmol/L (8-16); BILIRUBIN - TOTAL 0.38 mg/dL (0.2-1.3); CALCIUM 8.7 mg/dL (8.5-10.1); CARBON DIOXIDE 26.1 mmol/L (21.0-32.0); CREATININE - SERUM 1.1 mg/dL (0.6-1.3); MAGNESIUM - SERUM 1.8 mg/dL (1.8-2.4); POTASSIUM - SERUM 3.5 mmol/L (3.5-5.1)
[2020-10-11 21:03] LABS: BACTERIA FEW HPF (<MOD); BILIRUBIN NEGATIVE (NEGATIVE); KETONE NEGATIVE mg/dL (< 1+); NITRITE NEGATIVE (NEGATIVE); PH 6.5 (5.0-8.0); SQUAMOUS EPITHELIAL 3 HPF (0-4); UROBILINOGEN NORMAL mg/dL (< 2); WHITE CELLS - URINE 120 HPF (0-4)
[2020-10-11 23:24] LABS: APTT 28.1 SECONDS (22.8-39.4); INR 1.1 (0.85-1.17); PROTIME 13.1 SECONDS (11.6-15.0)
[2020-10-11 23:36] LABS: CKMB 0.7 U/L (0.0-3.6); CREATINE KINASE 75 UL (21-215); LIPASE 136 U/L (73-393); TROPONIN-I < 0.017 ng/mL (0.000-0.060)
[2020-10-12] VITALS (8 sets, daily range): BP systolic 122–158; BP diastolic 78–93; Ht 167.6 cm; Wt 94.8 kg
--- NOTE | 2020-10-12 01:30 | NUR ---
REPORT GIVEN TO DEVIKA DOE
[2020-10-12 05:47] LABS: EOSINOPHILS 3.9 % (0-7); HEMATOCRIT 40.5 % (36.0-48.0); HEMOGLOBIN 13.7 g/dL (12-16); LYMPHOCYTES 35.7 % (15-50); MCH 29.3 pg (26.0-34.0); MCHC 33.9 g/dL (31.0-37.0); MCV 86.4 fL (80.0-100.0); MONOCYTES 6.1 % (2-11); NEUTROPHILS 53.3 % (40-80); PLATELET COUNT 207 10x3/uL (130-400); RBC 4.69 10x6/uL (4.00-5.40); RDW 12.3 % (11.5-14.5); WBC 6.2 10x3/uL (4.8-10.8)
[2020-10-12 05:59] LABS: ALBUMIN 3.1 g/dL (3.4-5.0); ALKALINE PHOSPHATASE 113 U/L (30-120); ALT (SGPT) 88 U/L (10-68); CALCIUM 8.2 mg/dL (8.5-10.1); CARBON DIOXIDE 24.7 mmol/L (21.0-32.0); CHLORIDE - SERUM 106 mmol/L (98-107); MAGNESIUM - SERUM 1.8 mg/dL (1.8-2.4); SODIUM 139 mmol/L (136-145); UREA NITROGEN 5 mg/dL (7-18)
[2020-10-12 06:00] LABS: CALC OSMOLALITY 285 mosm/kg (275-300); CREATININE - SERUM 0.7 mg/dL (0.6-1.3); GLUCOSE 303 mg/dL (74-106); eGFR NON AFRICAN AMERICAN > 90 mL/min (90-120)
--- NOTE | 2020-10-12 06:53 | NUR ---
ATTEMPTED TO CALL REPORT, THEY WILL CALL ME BACK.
--- NOTE | 2020-10-12 06:54 | NUR ---
DC'D 22 G TO LEFT WRIST, PATIENT C/O IT BEING PAINFUL.
[2020-10-12] MEDS ORDERED: CYCLOBENZAPRINE5 MG PO (08:28)
[2020-10-12] MEDS ORDERED: VISTARIL50 MG PO (08:29)
[2020-10-12] MEDS ORDERED: ZANAFLEX4 MG PO (08:30)
[2020-10-12] MEDS ORDERED: CYMBALTA60 MG PO (08:30)
[2020-10-12] MEDS ORDERED: LYRICA100 MG PO (08:31)
[2020-10-12] MEDS ORDERED: BUSPIRONE HCL7.5 MG PO (08:32)
--- NOTE | 2020-10-12 08:44 | NUR ---
pt arrived to unit via wheelchair from ER. rr even nonlabored. iv cdi. all needs met at this time. clwr.
[2020-10-13 06:03] LABS: BASOPHILS 0.8 % (0-2); EOSINOPHILS 4.8 % (0-7); HEMATOCRIT 38.7 % (36.0-48.0); HEMOGLOBIN 13.2 g/dL (12-16); LYMPHOCYTES 45.8 % (15-50); MCH 29.6 pg (26.0-34.0); MCHC 34.1 g/dL (31.0-37.0); MCV 87.1 fL (80.0-100.0); MEAN PLATELET VOLUME 9.4 fL (7.4-10.4); MONOCYTES 6.1 % (2-11); NEUTROPHILS 42.5 % (40-80); PLATELET COUNT 200 10x3/uL (130-400); RBC 4.45 10x6/uL (4.00-5.40); RDW 12.2 % (11.5-14.5); WBC 5.5 10x3/uL (4.8-10.8)
[2020-10-13 06:05] LABS: ALBUMIN 2.9 g/dL (3.4-5.0); ALKALINE PHOSPHATASE 108 U/L (30-120); ALT (SGPT) 77 U/L (10-68); BILIRUBIN - TOTAL 0.18 mg/dL (0.2-1.3); CALC OSMOLALITY 282 mosm/kg (275-300); CALCIUM 8.2 mg/dL (8.5-10.1); CARBON DIOXIDE 23.9 mmol/L (21.0-32.0); CHLORIDE - SERUM 108 mmol/L (98-107); CREATININE - SERUM 0.6 mg/dL (0.6-1.3); MAGNESIUM - SERUM 1.7 mg/dL (1.8-2.4); POTASSIUM - SERUM 3.7 mmol/L (3.5-5.1); PROTEIN - SERUM 5.8 g/dL (6.4-8.2); SODIUM 139 mmol/L (136-145); UREA NITROGEN 4 mg/dL (7-18); eGFR NON AFRICAN AMERICAN > 90 mL/min (90-120)
[2020-10-13 06:20] LABS: GLUCOSE 248 mg/dL (74-106)
[2020-10-13 08:50] VITALS: BP 136/87
--- NOTE | 2020-10-13 09:24 | NUR ---
PT SITTING UP IN BED. PT STATES SHE HAS A BAD MAYORGA, GIVEN TYLENOL WITH AM MEDS. IV CDI, RR EVEN NONLABORED. ALL NEEDS MET AT THIS TIME. CLWR.
[2020-10-13] MEDS ORDERED: OMNICEF300 MG PO (12:48)
--- NOTE | 2020-10-13 14:16 | NUR ---
PT LEFT VIA WHEELCHAIR WITH ALL BELONGS. IV TAKEN OUT CATHETER INTACT. DISCHARGE INSTRUCTIONS PROVIDED. ENCOURAGED FOLLOW UP WITH PCP. DISCUSSED NEW PRESCRIPTION AND CONTINUATION OF HOME MEDS. DENIED QUESTIONS AND CONCERNS VOICED UNDERSTANDING OF INSTRUCTIONS GIVEN.
--- NOTE | 2020-10-13 18:22 | MORECARE ---
CASE MANAGEMENT DISCHARGE SUMMARY PATIENT: LIVIA PERRY UNIT: [id number] ADM DATE: 10/11/20 AGE: 45 : 77 SEX: F ROOM/BED: D.2209 AUTHOR: SHIRAZ EDWARDS PHYSICIAN: REFERRING PHYSICIAN: CHRIS CANO DO DATE OF SERVICE: 10/13/20 Case Management Discharge Planning Summary COMMENTS ENTERED DATE: 10/13/20 18:18 CT COMMENT TYPE: Discharge Planning REVIEWER: Susan Jaimes CM met with patient to assess discharge plan needs. Patient lives at home with her ex-, Bay. She plans to return home with no services needed and feels this is a safe discharge. Patient states she is independent with ambulation and ADLs. CM discussed the availability of home health services including home oxygen and medical equipment should that be needed. Patient declined HHS, SNF, IPR, and DME services at this time and is satisfied with DC plan. She states she can afford her medications and has reliable transportation to and from medical appointments. Don will provide transportation when patient is discharged. CM will continue to follow and assist as needed. DCP REVIEW SUMMARY ANTICIPATED D/C DATE: 10/13/2020 EXPECTED LOS : 2 CASE STATUS: DCP Complete INITIAL REVIEW: 10/13/2020 INITIAL REVIEWER: Susan Jaimes FINAL DISCHARGE DISPOSITION: : FINAL REVIEWER: Susan Jaimes FINAL REVIEW DATE: DCP Focus Questions & Answers DCP Screen QUESTION: ANSWER High Risk Factors: : None Walking limitation: Patient stated self rated walking limitation present? : No Age: : 19 - 45 Prior living environment: : Lives with others Disability ranking: : Grade 1: No significant disability DCP Evaluation QUESTION: ANSWER Patient and/or caregiver agree upon recommended discharge plan? : Yes Family / Caregiver's ability to cope with chronic illness: : a. Adequate (ability to meet patient's medical needs, ensures patient attends medical appts.) Patient's current cognitive status: : *Oriented to person, place, situation, time and present Patient's ability to cope with chronic illness : d. No chronic illness Does the patient have the ability to pay for or attain post discharge needs / services? : Yes Functional screen assessment: : No issues identified Family / Caregiver's ability to cope with chronic illness: : a. Adequate (ability to meet patient's medical needs, ensures patient attends medical appts.) Physical Status: : Independent with ADL's Equipment needed for post hospitalization: : None Is there a likelihood that the patient will require additional services to return to the preadmission environment? : No Living Arrangements: : Home with Spouse/Significant Other Results of this evaluation have been discussed with: : Patient Patient with capacity for self-care or can be cared for in same environment as prior to hospitalization? : Yes Baseline cognitive status: : *Oriented to person, place, situation, time and present Physical environment modification needed / anticipated for discharge: : No Medication Management: : Patient states can afford medications Planned post hospital services available for patient? : N/A Planned post hospital services covered by insurance plan? : N/A Does Patient have transportation to get home and to follow-up medical appointments when discharged from the hospital? : Yes Would patient like to participate in any Care Coordination programs (if applicable): : Not applicable Does the patient have electricity at home? : Yes Does the patient have running water in their house? : Yes Equipment in use: : None Mental health screen: : No mental health history DCP Re-evaluation QUESTION: ANSWER Would patient like to participate in any Care Coordination programs (if applicable): : Not applicable PATIENT: LIVIA PERRY ENCOUNTER: [id number] MEDICAL RECORD#: [id number] ADMISSION DATE: 10/11/2020 DISCHARGE DATE: 10/13/2020 ATTENDING MD: CHRIS WOODY : AGE: 45 MARITAL STATUS: D DC PLAN ID: [id number] FACILITY: [facility] PRINTED ON: 10/13/20 18:22 CT All edits/amendments must be made on the electronic document DICTATION DATE: 10/13/201821 HEATING AND VENTILATING WORKER: AURY 10/13/201821 RPT#: [id number] DC DATE:10/13/20 STATUS: DIS IN [facility] [address] [place] [address] END OF REPORT
[2020-10-15 10:12] LABS: HEPATITIS C ANTIBODY <0.1 S/CO RAT (0.0-0.9)
== END 2020-10-13 14:18 | disposition home or self-care (01) | DRG 638 ==
LOC: D.ER 19:29 → D.EDHOLD 22:50 → D.MS 22:50
PROVIDERS: Emergency Medicine; ADMIT Family Medicine; ATTEND Family Medicine
DX: E11.65 Type 2 diabetes mellitus with hyperglycemia (principal); N39.0 Urinary tract infection, site not specified; R74.01 Elevation of levels of liver transaminase levels; I10 Essential (primary) hypertension; G89.29 Other chronic pain; M54.9 Dorsalgia, unspecified